=== PATIENT | female | born 1990 | race Hispanic/Latino ===

== ENCOUNTER 2018-10-22 16:26 | Emergency (ER) | payer MEDICAID ==
[2018-10-22 17:00] LABS: APPEARANCE,URINE Clear (CLEAR); BILIRUBIN,URINE Negative (NEGATIVE); COLOR,URINE Yellow (YELLOW); GLUCOSE, URINE (UA) Negative (NEGATIVE); HCG,QUAL RESULT POSITIVE (NEGATIVE); KETONES,URINE Negative (NEGATIVE); LEUKOCYTE ESTERASE ,URINE Moderate (NEGATIVE); NITRATE,URINE Negative (NEGATIVE); OCCULT BLOOD,URINE Negative (NEGATIVE); PROTEIN,URINE Negative (NEGATIVE)
[2018-10-22 17:25] LABS: BACTERIA,URINE Few /HPF (None Seen); RBC,URINE None Seen /HPF (0-1)
== END 2018-10-22 17:36 | disposition home or self-care (01) ==
LOC: EDH 16:26
DX: N39.0 Urinary tract infection, site not specified (principal); Z32.01 Encounter for pregnancy test, result positive; M06.9 Rheumatoid arthritis, unspecified; M79.7 Fibromyalgia; J45.909 Unspecified asthma, uncomplicated
CPT/HCPCS: 81001; 81025

== ENCOUNTER 2022-05-04 02:43 | Emergency (ER) | payer MEDICAID ==
[2022-05-04] MEDS ORDERED: IBUPROFEN 600 MG TABLET PO ONE (04:00)
[2022-05-04] MEDS ORDERED: IBUP-2070 PO (04:07)
[2022-05-04 04:24] VITALS: BP 138/77
== END 2022-05-04 04:30 | disposition home or self-care (01) ==
LOC: EDH 02:43
DX: S00.33XA Contusion of nose, initial encounter (principal); S00.12XA Contusion of left eyelid and periocular area, initial encounter; J45.909 Unspecified asthma, uncomplicated; Y04.0XXA Assault by unarmed brawl or fight, initial encounter; Y93.89 Activity, other specified; Y92.89 Other specified places as the place of occurrence of the external cause; Y99.8 Other external cause status
CPT/HCPCS: 70150; 81025